=== PATIENT | male | born 1975 ===

== ENCOUNTER 2018-03-11 10:40 | Observation (INO) | payer OTHER ==
[2018-03-11] MEDS ORDERED: Albuterol-Ipratrop 3 mg / 0.5 (3 ml) UD INH STA ×2 (11:24)
[2018-03-11] MEDS ORDERED: Albuterol-Ipratrop 3 mg / 0.5 (3 ml) UD ONE (11:44)
[2018-03-11] MEDS ORDERED: Albuterol-Ipratrop 3 mg / 0.5 (3 ml) UD INH ONE ×2 (11:45→12:00)
[2018-03-11 11:48] LABS: BASO # 0.1 K/uL (0.0-0.2); BASO % 0.3 % (0.0-2.0); EOS % 0.1 % (0.0-4.0); HEMOGLOBIN 15.6 g/dL (12.0-18.0); LYMPH # 2.5 K/uL (1.0-4.3); LYMPH % 14.4 % (20.0-40.0); MEAN CELL VOLUME 83.7 fl (80.0-94.0); MEAN CORPUSCULAR HEMOGLOBIN 28.8 pg (27.0-31.0); MEAN CORPUSCULAR HGB CONC 34.4 g/dL (33.0-37.0); MEAN PLATELET VOLUME 8.5 fl (7.2-11.7); MONO # 1.6 K/uL (0.0-0.8); MONO % 9.1 % (0.0-10.0); NEUT # 13.2 K/uL (1.8-7.0); NEUT % 76.1 % (50.0-75.0); NRBC % 0.1 % (0.0-0.0); RBC 5.4 Mil/uL (4.40-5.90); RED CELL DISTRIBUTION WIDTH 13.5 % (11.5-14.5); WHITE BLOOD COUNT 17.3 K/uL (4.8-10.8)
[2018-03-11 11:57] LABS: BLOOD UREA NITROGEN 12 mg/dl (9-20); CALCIUM 10.1 mg/dL (8.4-10.2); GFR NON-AFRICAN AMERICAN > 60
--- NOTE | 2018-03-11 12:54 | ED PDOC ---
HPI: SOB/CHF/COPD Time Seen by Provider: 03/11/18 11:20 Chief Complaint (Nursing): Shortness Of Breath Chief Complaint (Provider): sob History Per: Patient (42 y/o male h/o asthma for ongoing dry cough/sob x 1 week not improving on singulair/albuterol. Was started on solumedrol yesterday [facility] but worsening symptoms today. Was seen by Dr. palomares today and sent to ED for admission.) Past Medical History Reviewed: Historical Data, Nursing Documentation, Vital Signs Vital Signs: Last Vital Signs Temp 98.6 F 03/11/18 15:51 Pulse 75 03/11/18 15:51 Resp 16 03/11/18 15:51 BP 161/97 H 03/11/18 15:51 Pulse Ox 98 03/11/18 15:51 - Medical History PMH: Asthma, Bipolar Disorder, HTN - Surgical History Surgical History: Appendectomy - Family History Family History: States: No Known Family Hx - Home Medications Home Medications: Ambulatory Orders Medication Instructions Recorded Acamprosate Calcium [Acamprosate 666 mg PO TID 03/11/18 Calcium] Albuterol Sulfate [Proair Hfa] 2 puff IH Q6 PRN 03/11/18 Budesonide/Formoterol Fumarate 1 puff IH Q12 03/11/18 [Symbicort 160-4.5 Mcg Inhaler] Bupropion HCl [Wellbutrin XL] 300 mg PO DAILY 03/11/18 Tolar Carbonate [Tolar 900 mg PO DAILY 03/11/18 Carbonate 300MG] Montelukast [Singulair] 10 mg PO DAILY 03/11/18 Olanzapine [Zyprexa] 20 mg PO DAILY 03/11/18 Ramipril [Altace] 20 mg PO Q12 03/11/18 amLODIPine [Norvasc] 10 mg PO DAILY 03/11/18 - Allergies Allergies/Adverse Reactions: Allergies Allergy/AdvReac Type Severity Reaction Status Date / Time No Known Allergies Allergy Verified 03/11/18 10:59 Review of Systems ROS Statement: Except As Marked, All Systems Reviewed And Found Negative Respiratory: Positive for: Shortness of Breath Physical Exam - Reviewed Nursing Documentation Reviewed: Yes Vital Signs Reviewed: Yes - Physical Exam Appears: Positive for: Well, Non-toxic, No Acute Distress Head Exam: Positive for: ATRAUMATIC, NORMAL INSPECTION, NORMOCEPHALIC Skin: Positive for: Normal Color, Warm, DRY Eye Exam: Positive for: EOMI, Normal appearance, PERRL ENT: Positive for: Normal ENT Inspection Neck: Positive for: Normal, Painless ROM Cardiovascular/Chest: Positive for: Regular Rate, Rhythm Respiratory: Positive for: Normal Breath Sounds, Wheezing Gastrointestinal/Abdominal: Positive for: Normal Exam, Soft Back: Positive for: Normal Inspection Extremity: Positive for: Normal ROM Neurologic/Psych: Positive for: Alert, Oriented - Laboratory Results Result Diagrams: 03/11/18 11:42 03/11/18 11:42 - ECG ECG Rhythm: Positive for: Sinus Rhythm ( nsr 74bpm; no ectopy no acute changes) O2 Sat by Pulse Oximetry: 97 - Progress ED Course And Treament: duoneb x 3 solumedrol 125 mg iv x 1 dose CXR NEGATIVE Patient looks improved. d/w Dr. Palomares. Medical Decision Making Medical Decision Making: Patient has failed outpatient treatment. Was d/c from [place] ED yesterday. Will admit observation for asthma exacerbation Disposition - Clinical Impression Clinical Impression: Asthma exacerbation - Patient ED Disposition Is Patient to be Admitted: Yes - Disposition Disposition Time: 13:47 Condition: FAIR - Pt Status Changed To: Hospital Disposition Of: Observation
--- NOTE | 2018-03-11 13:27 | RAD ---
Date of service: 03/11/2018 HISTORY: Shortness of breath. COMPARISON: No prior. TECHNIQUE: Chest PA and lateral FINDINGS: LUNGS: No active pulmonary disease. PLEURA: No significant pleural effusion identified. No pneumothorax apparent. CARDIOVASCULAR: No radiographic findings to suggest acute or significant cardiovascular disease. OSSEOUS STRUCTURES: No significant abnormalities. VISUALIZED UPPER ABDOMEN: Normal. OTHER FINDINGS: None. IMPRESSION: No active disease.
[2018-03-11] MEDS ORDERED: Sodium Chloride 3% for Inhalation 4 ML VIAL.NEB IH PRN (18:37)
[2018-03-11] MEDS ORDERED: Dextrose 5%/0.45% NS 1,000 ML IV SCH (18:45)
[2018-03-11] MEDS ORDERED: Promethazine 12.5 mg/10 ml Syrup PO PRN (19:05)
[2018-03-11] MEDS: Albuterol-Ipratrop 3 mg / 0.5 (3 ml) UD INH SCH (19:12)
[2018-03-11] MEDS: Fluticasone-Salmeterol 250-50mcg Diskus IH SCH (20:54)
[2018-03-12] VITALS: RESP 20
[2018-03-12] MEDS ORDERED: methylPREDNISolone 60 MG in Sodium Chloride 0.9% 50 ML IVPB SCH (01:00)
[2018-03-12] MEDS: Albuterol-Ipratrop 3 mg / 0.5 (3 ml) UD INH SCH ×4 (01:00→19:16)
[2018-03-12 06:57] LABS: HEMOGLOBIN 14.8 g/dL (12.0-18.0); MEAN CELL VOLUME 83.8 fl (80.0-94.0); MEAN CORPUSCULAR HEMOGLOBIN 28.5 pg (27.0-31.0); RBC 5.19 Mil/uL (4.40-5.90); RED CELL DISTRIBUTION WIDTH 13.8 % (11.5-14.5); WHITE BLOOD COUNT 16.5 K/uL (4.8-10.8)
--- NOTE | 2018-03-12 08:35 | CP.PCM.HP ---
History of Present Illness - History of Present Illness History of Present Illness: 42 YR OLD MALE ADMITTED WITH PROGRESSIVELY WORSENING SHORTNESS OF BREATH AND EXERCISE INTOLERANCE X SEVERAL DAYS HE WAS SEEN AT [facility],TREATED AND D/[place] BUT SYMPTOMS WORSENED AT HOME HE WAS REFERRED TO THE ER BECAUSE OF OUTPT TREATMENT FAILURE AND WAS ADMITTED WITH ACUTE ASTHMA PMX-ASTHMA,HTN,BIPOLAR DZ Present on Admission - Present on Admission Any Indicators Present on Admission: Yes Past Patient History - Past Medical History & Family History Past Medical History?: Yes - Past Social History Smoking Status: Former Smoker - CARDIAC Hx Cardiac Disorders: Yes Hx Hypertension: Yes - PULMONARY Hx Respiratory Disorders: Yes Hx Asthma: Yes - NEUROLOGICAL Hx Neurological Disorder: No - HEENT Hx HEENT Problems: No - RENAL Hx Chronic Kidney Disease: No - ENDOCRINE/METABOLIC Hx Endocrine Disorders: No - HEMATOLOGICAL/ONCOLOGICAL Hx Blood Disorders: No - INTEGUMENTARY Hx Dermatological Problems: No - MUSCULOSKELETAL/RHEUMATOLOGICAL Hx Musculoskeletal Disorders: No Hx Falls: No - GASTROINTESTINAL Hx Gastrointestinal Disorders: No - GENITOURINARY/GYNECOLOGICAL Hx Genitourinary Disorders: No - PSYCHIATRIC Hx Psychophysiologic Disorder: Yes Hx Bipolar Disorder: Yes - SURGICAL HISTORY Hx Surgeries: Yes Hx Appendectomy: Yes - ANESTHESIA Hx Anesthesia: Yes Hx Anesthesia Reactions: No Meds Allergies/Adverse Reactions: Allergies Allergy/AdvReac Type Severity Reaction Status Date / Time prednisone AdvReac RASH Verified 03/11/18 21:16 Physical Exam - Constitutional Appears: Well, In Acute Distress - Head Exam Head Exam: ATRAUMATIC, NORMAL INSPECTION, NORMOCEPHALIC - Eye Exam Eye Exam: EOMI, Normal appearance, PERRL Pupil Exam: NORMAL ACCOMODATION, PERRL - ENT Exam ENT Exam: Mucous Membranes Moist, Normal Exam - Neck Exam Neck exam: Positive for: Normal Inspection - Respiratory Exam Respiratory Exam: Prolonged Expiratory Phase, Rales, Wheezes, Respiratory Distress - Cardiovascular Exam Cardiovascular Exam: REGULAR RHYTHM - GI/Abdominal Exam GI & Abdominal Exam: Normal Bowel Sounds, Soft. absent: Tenderness - Rectal Exam Rectal Exam: NORMAL INSPECTION - Extremities Exam Extremities exam: Positive for: normal inspection - Back Exam Back exam: NORMAL INSPECTION - Neurological Exam Neurological exam: Alert, CN II-XII Intact, Normal Gait, Oriented x3, Reflexes Normal - Psychiatric Exam Psychiatric exam: Normal Affect, Normal Mood - Skin Skin Exam: Dry, Intact, Normal Color, Warm Results - Vital Signs Recent Vital Signs: Last Vital Signs Temp 98.2 F 03/11/18 23:59 Pulse 85 03/11/18 23:59 Resp 20 03/11/18 23:59 BP 143/84 03/11/18 23:59 Pulse Ox 95 03/11/18 23:59 - Labs Result Diagrams: 03/12/18 05:45 03/11/18 11:42 Labs: Laboratory Results - last 24 hr 03/11/18 03/11/18 03/12/18 11:42 11:42 05:45 WBC 17.3 H 16.5 H RBC 5.40 5.19 Hgb 15.6 14.8 Hct 45.2 43.5 MCV 83.7 83.8 MCH 28.8 28.5 MCHC 34.4 34.0 RDW 13.5 13.8 Plt Count 291 283 MPV 8.5 Neut % (Auto) 76.1 H Lymph % (Auto) 14.4 L [place] % (Auto) 9.1 Eos % (Auto) 0.1 Baso % (Auto) 0.3 Neut # (Auto) 13.2 H Lymph # (Auto) 2.5 [place] # (Auto) 1.6 H Eos # (Auto) 0.0 Baso # (Auto) 0.1 Sodium 142 Potassium 3.7 Chloride 103 Carbon Dioxide 25 Anion Gap 18 BUN 12 Creatinine 0.6 L Est GFR ( Amer) > 60 Est GFR (Non-Af Amer) > 60 Random Glucose 113 H Calcium 10.1 Assessment & Plan - Assessment and Plan (Free Text) Assessment: ACUTE ASTHMA URI LEUKOCYTOSIS HTN BIPOLAR DZ Plan: CONTINUE RX ORDERED - Date & Time Date: 03/12/18 Time: 08:37
[2018-03-12] MEDS ORDERED: Pneumococcal 23-Valent Vaccine IM ONE (09:00)
[2018-03-12] MEDS ORDERED: methylPREDNISolone 60 MG in Sodium Chloride 0.9% 50 ML IV SCH (09:00)
[2018-03-12] MEDS ORDERED: MethylPREDNISolone 40 mg Vial IV SCH (09:00)
[2018-03-12] MEDS: Fluticasone-Salmeterol 250-50mcg Diskus IH SCH ×2 (09:11→21:12)
[2018-03-12] MEDS: levoFLOXacin 500 mg in D5W 500 MG/100 ML BAG IVPB SCH (09:12)
[2018-03-12] MEDS: buPROPion SR 150 MG TABLET PO SCH (09:14)
[2018-03-12] MEDS: DiphenhydrAMINE 50 mg/ml Inj IVP SCH ×2 (09:26→21:10)
[2018-03-12] MEDS: MethylPREDNISolone 40 mg Vial IV SCH (21:11)
[2018-03-13] MEDS: Albuterol-Ipratrop 3 mg / 0.5 (3 ml) UD INH SCH ×2 (00:59→07:29)
[2018-03-13 06:43] LABS: BASO % 0.2 % (0.0-2.0); HEMOGLOBIN 15.3 g/dL (12.0-18.0); LYMPH # 1.7 K/uL (1.0-4.3); LYMPH % 11.1 % (20.0-40.0); MEAN CELL VOLUME 84.1 fl (80.0-94.0); MEAN CORPUSCULAR HEMOGLOBIN 28.9 pg (27.0-31.0); MEAN CORPUSCULAR HGB CONC 34.4 g/dL (33.0-37.0); MEAN PLATELET VOLUME 8.9 fl (7.2-11.7); MONO # 0.7 K/uL (0.0-0.8); MONO % 4.8 % (0.0-10.0); NEUT # 12.8 K/uL (1.8-7.0); NEUT % 83.9 % (50.0-75.0); RBC 5.29 Mil/uL (4.40-5.90); RED CELL DISTRIBUTION WIDTH 13.6 % (11.5-14.5); WHITE BLOOD COUNT 15.3 K/uL (4.8-10.8)
[2018-03-13 08:35] VITALS: BP 158/94; PULSE 73; TEMP 97.3; O2SAT 99
--- NOTE | 2018-03-13 09:15 | CP.PCM.DIS ---
Provider - Provider Date of Admission: 03/11/18 13:47 Attending physician: Riaz Leiva MD Time Spent in preparation of Discharge (in minutes): 35 Diagnosis - Discharge Diagnosis (1) Leukocytosis Status: Acute (2) Upper respiratory infection Status: Acute (3) History of bipolar disorder Status: Acute (4) Hypertension Status: Acute (5) Asthma exacerbation Status: Acute Hospital Course - Lab Results Lab Results: Micro Results 03/12/18 17:22 Sputum Induced Gram Stain - Final Most Recent Lab Values WBC 15.3 K/uL (4.8-10.8) H 03/13/18 06:42 RBC 5.29 Mil/uL (4.40-5.90) 03/13/18 06:42 Hgb 15.3 g/dL (12.0-18.0) 03/13/18 06:42 Hct 44.5 % (35.0-51.0) 03/13/18 06:42 MCV 84.1 fl (80.0-94.0) 03/13/18 06:42 MCH 28.9 pg (27.0-31.0) 03/13/18 06:42 MCHC 34.4 g/dL (33.0-37.0) 03/13/18 06:42 RDW 13.6 % (11.5-14.5) 03/13/18 06:42 Plt Count 279 K/uL (130-400) 03/13/18 06:42 MPV 8.9 fl (7.2-11.7) 03/13/18 06:42 Neut % (Auto) 83.9 % (50.0-75.0) H 03/13/18 06:42 Lymph % (Auto) 11.1 % (20.0-40.0) L 03/13/18 06:42 [place] % (Auto) 4.8 % (0.0-10.0) 03/13/18 06:42 Eos % (Auto) 0.0 % (0.0-4.0) 03/13/18 06:42 Baso % (Auto) 0.2 % (0.0-2.0) 03/13/18 06:42 Neut # (Auto) 12.8 K/uL (1.8-7.0) H 03/13/18 06:42 Lymph # (Auto) 1.7 K/uL (1.0-4.3) 03/13/18 06:42 [place] # (Auto) 0.7 K/uL (0.0-0.8) 03/13/18 06:42 Eos # (Auto) 0.0 K/uL (0.0-0.7) 03/13/18 06:42 Baso # (Auto) 0.0 K/uL (0.0-0.2) 03/13/18 06:42 Sodium 142 mmol/l (132-148) 03/11/18 11:42 Potassium 3.7 MMOL/L (3.6-5.0) 03/11/18 11:42 Chloride 103 mmol/L (98-107) 03/11/18 11:42 Carbon Dioxide 25 mmol/L (22-30) 03/11/18 11:42 Anion Gap 18 (10-20) 03/11/18 11:42 BUN 12 mg/dl (9-20) 03/11/18 11:42 Creatinine 0.6 mg/dl (0.8-1.5) L 03/11/18 11:42 Est GFR ( Amer) > 60 03/11/18 11:42 Est GFR (Non-Af Amer) > 60 03/11/18 11:42 Random Glucose 113 mg/dL (75-110) H 03/11/18 11:42 Calcium 10.1 mg/dL (8.4-10.2) 03/11/18 11:42 - Hospital Course Hospital Course: CLINICALLY IMPROVED WITH THERAPY BP MEDS ADJUSTED--WILL CONTINUE TO MONITOR OUT PT Discharge Exam - Head Exam Head Exam: ATRAUMATIC, NORMAL INSPECTION, NORMOCEPHALIC - Eye Exam Eye Exam: EOMI, Normal appearance, PERRL Pupil Exam: NORMAL ACCOMODATION, PERRL - Respiratory Exam Respiratory Exam: Prolonged Expiratory Phase, Wheezes Additional comments: MILD WHEEZING - GI/Abdominal Exam GI & Abdominal Exam: Normal Bowel Sounds - Rectal Exam Rectal Exam: NORMAL INSPECTION - Neurological Exam Neurological exam: Alert, CN II-XII Intact, Normal Gait, Oriented x3, Reflexes Normal - Psychiatric Exam Psychiatric exam: Normal Affect, Normal Mood - Skin Skin Exam: Dry, Intact, Normal Color, Warm Discharge Plan - Follow Up Plan Condition: FAIR Disposition: HOME/ ROUTINE Patient education suggested?: Yes Additional Instructions: DISCHARGE TODAY FOLLOW UP WITH DR LEIVA IN 48 HRS
[2018-03-13] MEDS: Fluticasone-Salmeterol 250-50mcg Diskus IH SCH (09:33)
[2018-03-13] MEDS: levoFLOXacin 500 mg in D5W 500 MG/100 ML BAG IVPB SCH (09:34)
[2018-03-13] MEDS: MethylPREDNISolone 40 mg Vial IV SCH (09:36)
[2018-03-13] MEDS: DiphenhydrAMINE 50 mg/ml Inj IVP SCH (09:50)
[2018-03-13] MEDS: buPROPion SR 150 MG TABLET PO SCH (09:50)
== END 2018-03-13 12:07 | disposition home or self-care (01) ==
LOC: H.ER 10:40 → H.ERHOLD 13:47 → H.MEDSURG1 18:17
PROVIDERS: ADMIT Internal Medicine Pulmonary Disease; ATTEND Internal Medicine Pulmonary Disease
DX: J06.9 Acute upper respiratory infection, unspecified (principal); F31.9 Bipolar disorder, unspecified; I10 Essential (primary) hypertension; J45.901 Unspecified asthma with (acute) exacerbation; Z23 Encounter for immunization; Z87.891 Personal history of nicotine dependence
CPT/HCPCS: 31720; 36415; 71046; 80048; 85025; 85027; 87070; 90471; 90732; 94150; 94640; 96374; 99285; G0378; J1200; J2920; J2930